=== PATIENT | male | born 1980 | race Caucasian/White ===

== ENCOUNTER 2021-11-15 21:32 | Emergency (ER) | payer MEDICAID ==
[~2021-11-15] VITALS: Ht 177.8 cm; Wt 77.1 kg
[2021-11-15 22:55] LABS: BILIRUBIN,URINE NEGATIVE (NEGATIVE); COLOR,URINE YELLOW (YELLOW); LEUKOCYTE ESTERASE ,URINE NEGATIVE (NEGATIVE); NITRITE, URINE NEGATIVE (NEGATIVE); PROTEIN,URINE NEGATIVE (NEGATIVE); UGLUCOSE NEGATIVE (NEGATIVE)
--- NOTE | 2021-11-15 23:15 | NUR ---
PATIENT BIBSELF C/O +SI WITH PLAN TO DRINK FORMALDEHYDE, VOL PSYCH ADMIT. PATIENT IS A/O X 4 RR EVEN AND UNLABORED, NO SOB NOTED, VSS. NO ACUTE DISTRESS NOTED. PATIENT TAKEN TO ER BED 18, SECURITY WANDED PT, BELONGINGS TAKEN TO PT LOCKER, PT PLACED IN GOWN. WILL CONTINUE TO MONITOR.
[2021-11-15 23:20] LABS: BACTERIA,URINE Rare /HPF (None Seen); RBC,URINE 21-50 /HPF (0-2); SQUAMOUS EPITHELIAL CELL,UR Rare /HPF (None Seen)
[2021-11-15 23:44] LABS: BASOPHILS % (AUTO) 0.5 % (0.0-2.0); EOSINOPHILS % (AUTO) 3.2 % (0.0-6.0); HEMATOCRIT 40 % (39-51); HEMOGLOBIN 13.2 g/dL (13.5-17.5); LYMPHOCYTES # (AUTO) 2.1 K/uL (0.8-4.8); MEAN CORPUSCULAR HGB CONC 33 g/dl (31.0-36.0); MEAN CORPUSCULAR VOLUME 87 fL (80-96); MONOCYTES # (AUTO) 0.5 K/uL (0.1-1.30); MONOCYTES % (AUTO) 9.8 % (2.0-12.0); NEUTROPHILS # (AUTO) 2.4 K/uL (1.8-8.9); NEUTROPHILS % (AUTO) 46.5 % (43.0-81.0); PLATELET COUNT (AUTO) 192 K/uL (150-450); RED BLOOD CELL COUNT(AUTO) 4.58 MIL/uL (4.5-6.0); WHITE BLOOD COUNT (AUTO) 5.2 K/uL (4.3-11.0)
--- NOTE | 2021-11-16 | NUR ---
URINE COLLECTED SENT TO LAB
--- NOTE | 2021-11-16 00:01 | NUR ---
ANIAID COLLECTED SENT TO LAB
[2021-11-16 00:20] LABS: ACETAMINOPHEN 0 ug/ml (10-30); ALANINE AMINOTRANSFERASE 121 U/L (12-78); ALBUMIN 3.1 g/dL (3.4-5.0); ALCOHOL, BLOOD < 3 mg/dL (0-0); ALKALINE PHOSPHATASE 91 U/L (46-116); ASPARTATE AMINOTRANSFERASE 77 U/L (15-37); BILIRUBIN,DIRECT 0.1 mg/dL (0.0-0.2); BILIRUBIN,TOTAL 0.2 mg/dL (0.2-1.0); CALCIUM, SERUM 8.5 mg/dL (8.5-10.1); CARBON DIOXIDE 34 mmol/L (21-32); CHLORIDE 102 mmol/L (98-107); CREATININE 1.2 mg/dL (0.6-1.3); GLUCOSE 133 mg/dL (74-106); POTASSIUM 4.2 mmol/L (3.5-5.1); SODIUM SERUM 137 mmol/L (136-145); TOTAL PROTEIN, SERUM 7.9 g/dL (6.4-8.2); UREA NITROGEN, BLOOD 15 mg/dL (7-18)
[2021-11-16 05:00] VITALS: BP 135/70
--- NOTE | 2021-11-16 05:00 | NUR ---
PATIENT RESTING IN BED, VSS, NO ACUTE DISTRESS NOTED.
--- NOTE | 2021-11-16 06:00 | NUR ---
FACESHEET AND CLINICALS FAXED TO [facility].
--- NOTE | 2021-11-16 06:57 | NUR ---
Dai han in [facility] - 11/16/21 at 0716 by MARISELA [phone]
--- NOTE | 2021-11-16 08:58 | NUR ---
Followed-up with [facility], still awaiting for feedback.
--- NOTE | 2021-11-16 10:15 | NUR ---
ACCEPTED UNDER DOMINICK RAMAN 11AM FOR ENVIRONMENTAL PROTECTION OFFICER, NUMBER FOR REPORT [phone]
--- NOTE | 2021-11-16 10:24 | NUR ---
REPORT GIVEN TO JAME FOR DELVIN
--- NOTE | 2021-11-16 11:26 | NUR ---
[facility] CAME IN AND PICKED HIM UP,2 BABELONGINGS BAG WITH ALL HIS BELONGINGS AND A CHOULDER BAG GIVEN
== END 2021-11-16 11:28 ==
LOC: ER 21:38
DX: R45.851 Suicidal ideations (principal); R74.01 Elevation of levels of liver transaminase levels; Z20.822 Contact with and (suspected) exposure to COVID-19
CPT/HCPCS: 36415; 80048; 80076; 80143; 80307; 80320; 81001; 85025; 87426; 99285; C9803; G0480

== ENCOUNTER 2021-12-01 04:47 | Emergency (ER) | payer MEDICAID ==
[~2021-12-01] VITALS: Ht 177.8 cm; Wt 77.1 kg
--- NOTE | 2021-12-01 05:52 | NUR ---
BIBS FOR S/I WITH AUDITORY HALLUCINATIONS TELLING HIM TO KILL HIMSELF SEEKING VOLUNTARY ADMISSION TO PSYCH. PATIENT ALERT AND ORIENTED X3. AMBULATORY WITH NON LABORED BREATHING IN BED 18 ALL BELONGINGS TAKEN AND SENT TO LOCKER. WANDED BY SECURITY AWAITING MD THOMSON.
--- NOTE | 2021-12-01 05:53 | NUR ---
URINE COLLECTED AND SENT TO LAB
--- NOTE | 2021-12-01 05:53 | NUR ---
COVID SWAB DONE AND SENT TO LAB
[2021-12-01 06:31] LABS: BASOPHILS % (AUTO) 0.8 % (0.0-2.0); EOSINOPHILS % (AUTO) 5.5 % (0.0-6.0); HEMATOCRIT 39 % (39-51); HEMOGLOBIN 12.9 g/dL (13.5-17.5); LYMPHOCYTES # (AUTO) 1.7 K/uL (0.8-4.8); LYMPHOCYTES % (AUTO) 39.1 % (20.0-44.0); MEAN CORPUSCULAR HGB CONC 33 g/dl (31.0-36.0); MEAN CORPUSCULAR VOLUME 87 fL (80-96); MONOCYTES # (AUTO) 0.5 K/uL (0.1-1.30); MONOCYTES % (AUTO) 10.7 % (2.0-12.0); NEUTROPHILS # (AUTO) 1.9 K/uL (1.8-8.9); NEUTROPHILS % (AUTO) 43.9 % (43.0-81.0); PLATELET COUNT (AUTO) 185 K/uL (150-450); RED BLOOD CELL COUNT(AUTO) 4.41 MIL/uL (4.5-6.0); WHITE BLOOD COUNT (AUTO) 4.4 K/uL (4.3-11.0)
[2021-12-01 06:44] LABS: BILIRUBIN,URINE NEGATIVE (NEGATIVE); COLOR,URINE YELLOW (YELLOW); LEUKOCYTE ESTERASE ,URINE NEGATIVE (NEGATIVE); NITRITE, URINE NEGATIVE (NEGATIVE); PH,URINE 5.5 (5.0-8.0); PROTEIN,URINE NEGATIVE (NEGATIVE); UGLUCOSE NEGATIVE (NEGATIVE); UROBILINOGEN,URINE 0.2 EU/dL (0.2)
[2021-12-01 06:58] LABS: BACTERIA,URINE None seen /HPF (None Seen); RBC,URINE 51-80 /HPF (0-2)
[2021-12-01 07:00] LABS: CALCIUM, SERUM 8.2 mg/dL (8.5-10.1); CARBON DIOXIDE 32 mmol/L (21-32); CHLORIDE 103 mmol/L (98-107); CREATININE 1.2 mg/dL (0.6-1.3); GLUCOSE 101 mg/dL (74-106); POTASSIUM 3.8 mmol/L (3.5-5.1); SODIUM SERUM 138 mmol/L (136-145); UREA NITROGEN, BLOOD 15 mg/dL (7-18)
[2021-12-01 07:06] LABS: ALANINE AMINOTRANSFERASE 130 U/L (12-78); ALBUMIN 2.9 g/dL (3.4-5.0); ALKALINE PHOSPHATASE 89 U/L (46-116); ASPARTATE AMINOTRANSFERASE 77 U/L (15-37); TOTAL PROTEIN, SERUM 7.7 g/dL (6.4-8.2)
[2021-12-01 07:08] LABS: ACETAMINOPHEN < 10 ug/ml (10-30); ALCOHOL, BLOOD < 3 mg/dL (0-0)
[2021-12-01 07:19] LABS: BILIRUBIN,DIRECT 0.1 mg/dL (0.0-0.2)
[2021-12-01 07:21] LABS: BILIRUBIN,TOTAL 0.2 mg/dL (0.2-1.0)
--- NOTE | 2021-12-01 10:02 | NUR ---
PT ACCEPTED AT [facility] UNDER DR. DIAMOND UNIT [phone] FOR REPORT TRANSPORT WILL BE SET UP BY [facility] ACCORDING TO MERVIN FROM [facility]. PENDING ETA.
--- NOTE | 2021-12-01 11:14 | NUR ---
TRANSPORT ETA 30 MINS
[2021-12-01 12:00] VITALS: BP 134/62
--- NOTE | 2021-12-01 12:47 | NUR ---
PICKED UP BY TRANSPORT IN STABLE CONDITION
== END 2021-12-01 12:50 ==
LOC: ER 04:52
DX: R45.851 Suicidal ideations (principal); F15.10 Other stimulant abuse, uncomplicated; Z59.00 Homelessness unspecified; R44.0 Auditory hallucinations; Z20.822 Contact with and (suspected) exposure to COVID-19
CPT/HCPCS: 99285; 85025; 80048; 80076; 81001; 36415; 87426; 80143; 80320; 80307; C9803; G0480

== ENCOUNTER 2022-04-25 04:39 | Emergency (ER) | payer MEDICAID ==
[~2022-04-25] VITALS: Ht 177.8 cm; Wt 79.4 kg
--- NOTE | 2022-04-25 05:01 | NUR ---
COVID ANTIGEN SWAB COLLECTED AND SENT TO LAB
[2022-04-25 06:07] LABS: BASOPHILS % (AUTO) 0.6 % (0.0-2.0); HEMATOCRIT 39 % (39-51); HEMOGLOBIN 13.2 g/dL (13.5-17.5); LYMPHOCYTES # (AUTO) 2.1 K/uL (0.8-4.8); LYMPHOCYTES % (AUTO) 43.6 % (20.0-44.0); MEAN CORPUSCULAR HGB CONC 34 g/dl (31.0-36.0); MEAN CORPUSCULAR VOLUME 90 fL (80-96); MONOCYTES # (AUTO) 0.7 K/uL (0.1-1.30); MONOCYTES % (AUTO) 14.2 % (2.0-12.0); NEUTROPHILS # (AUTO) 1.7 K/uL (1.8-8.9); NEUTROPHILS % (AUTO) 35.6 % (43.0-81.0); PLATELET COUNT (AUTO) 253 K/uL (150-450); RED BLOOD CELL COUNT(AUTO) 4.38 MIL/uL (4.5-6.0); WHITE BLOOD COUNT (AUTO) 4.8 K/uL (4.3-11.0)
[2022-04-25 06:47] LABS: ALANINE AMINOTRANSFERASE 140 U/L (12-78); ALBUMIN 2.9 g/dL (3.4-5.0); ALCOHOL, BLOOD < 3 mg/dL (0-0); ALKALINE PHOSPHATASE 91 U/L (46-116); ASPARTATE AMINOTRANSFERASE 71 U/L (15-37); BILIRUBIN,DIRECT 0.1 mg/dL (0.0-0.2); BILIRUBIN,TOTAL 0.4 mg/dL (0.2-1.0); CALCIUM, SERUM 8.4 mg/dL (8.5-10.1); CARBON DIOXIDE 27 mmol/L (21-32); CHLORIDE 104 mmol/L (98-107); GLUCOSE 91 mg/dL (74-106); POTASSIUM 3.8 mmol/L (3.5-5.1); SODIUM SERUM 135 mmol/L (136-145); UREA NITROGEN, BLOOD 12 mg/dL (7-18)
[2022-04-25 06:49] LABS: ACETAMINOPHEN < 10 ug/ml (10-30); BILIRUBIN,URINE NEGATIVE (NEGATIVE); COLOR,URINE YELLOW (YELLOW); LEUKOCYTE ESTERASE ,URINE NEGATIVE (NEGATIVE); NITRITE, URINE NEGATIVE (NEGATIVE); PH,URINE 5.5 (5.0-8.0); PROTEIN,URINE NEGATIVE (NEGATIVE); UGLUCOSE NEGATIVE (NEGATIVE); UROBILINOGEN,URINE 0.2 EU/dL (0.2)
[2022-04-25 07:39] LABS: BACTERIA,URINE Rare /HPF (None Seen); SQUAMOUS EPITHELIAL CELL,UR None Seen /HPF (None Seen); WBC,URINE 0-2 /HPF (0-3)
--- NOTE | 2022-04-25 09:49 | NUR ---
CLINICALS FAXED TO [facility]
--- NOTE | 2022-04-25 11:52 | NUR ---
CALLED [facility] FOR UPDATE, WAITING FOR BED PER MERVIN
--- NOTE | 2022-04-25 14:37 | NUR ---
ACCEPTED AT [facility] PER MERVIN. TRANSPO ETA BY 1500. PLS CALL FOR REPORT
--- NOTE | 2022-04-25 14:56 | NUR ---
PT UNDER DR. JADE GIVE REPORT TO [phone]
[2022-04-25 14:57] VITALS: BP 132/79
--- NOTE | 2022-04-25 15:20 | NUR ---
TRY TO GIVE REPORT 3X BUT NO ANSWER
--- NOTE | 2022-04-25 16:12 | NUR ---
[facility].
== END 2022-04-25 16:15 ==
LOC: ER 04:42
DX: R45.851 Suicidal ideations (principal); Z59.00 Homelessness unspecified; Z20.822 Contact with and (suspected) exposure to COVID-19; Z86.19 Personal history of other infectious and parasitic diseases
CPT/HCPCS: 99285; 85025; 80048; 80076; 81001; 36415; 87426; 80143; 80320; 80307; C9803; G0480

== ENCOUNTER 2022-05-09 05:58 | Emergency (ER) | payer MEDICAID ==
[~2022-05-09] VITALS: Ht 177.8 cm; Wt 79.4 kg
--- NOTE | 2022-05-09 06:15 | NUR ---
PATIENT BIBSELF C/O HEARING VOICES AND WANTS A VOL PSYCH ADMIT. -HI. PATIENT IS A/O X 4, RR EVEN AND UNLABORED NO SOB NOTED. PATIENT IS AFEBRILE. VSS. NO ACUTE DISTRESS NOTED. PATIENT PLACED IN HOSPTIAL GOWN AND ALL BELONGINGS TAKEN AND PLACED IN LOCKER. PATIENT WANDED BY SECURITY. PATIENT TAKEN TO ER BED 18. WILL CONTINUE TO MONITOR.
--- NOTE | 2022-05-09 06:17 | NUR ---
COVID SWAB COLLECTED
--- NOTE | 2022-05-09 06:22 | NUR ---
URINE COLLECTED SENT TO LAB
[2022-05-09 06:55] LABS: BILIRUBIN,URINE NEGATIVE (NEGATIVE); COLOR,URINE YELLOW (YELLOW); LEUKOCYTE ESTERASE ,URINE NEGATIVE (NEGATIVE); NITRITE, URINE NEGATIVE (NEGATIVE); PROTEIN,URINE NEGATIVE (NEGATIVE); UGLUCOSE NEGATIVE (NEGATIVE); UROBILINOGEN,URINE 0.2 EU/dL (0.2)
[2022-05-09 07:24] LABS: BASOPHILS % (AUTO) 0.5 % (0.0-2.0); HEMATOCRIT 41 % (39-51); HEMOGLOBIN 13.8 g/dL (13.5-17.5); LYMPHOCYTES # (AUTO) 1.7 K/uL (0.8-4.8); LYMPHOCYTES % (AUTO) 29.6 % (20.0-44.0); MEAN CORPUSCULAR HGB CONC 34 g/dl (31.0-36.0); MEAN CORPUSCULAR VOLUME 89 fL (80-96); MONOCYTES # (AUTO) 0.5 K/uL (0.1-1.30); MONOCYTES % (AUTO) 9.1 % (2.0-12.0); NEUTROPHILS # (AUTO) 3.3 K/uL (1.8-8.9); NEUTROPHILS % (AUTO) 59.8 % (43.0-81.0); PLATELET COUNT (AUTO) 210 K/uL (150-450); WHITE BLOOD COUNT (AUTO) 5.6 K/uL (4.3-11.0)
[2022-05-09 07:35] LABS: CALCIUM, SERUM 8.7 mg/dL (8.5-10.1); CARBON DIOXIDE 28 mmol/L (21-32); CHLORIDE 104 mmol/L (98-107); CREATININE 1.2 mg/dL (0.6-1.3); GLUCOSE 99 mg/dL (74-106); POTASSIUM 3.7 mmol/L (3.5-5.1); SODIUM SERUM 139 mmol/L (136-145); UREA NITROGEN, BLOOD 12 mg/dL (7-18)
[2022-05-09 07:40] LABS: ALANINE AMINOTRANSFERASE 107 U/L (12-78); ALBUMIN 3.4 g/dL (3.4-5.0); ALKALINE PHOSPHATASE 88 U/L (46-116); ASPARTATE AMINOTRANSFERASE 74 U/L (15-37); BILIRUBIN,DIRECT 0.1 mg/dL (0.0-0.2); BILIRUBIN,TOTAL 0.4 mg/dL (0.2-1.0); TOTAL PROTEIN, SERUM 8.3 g/dL (6.4-8.2)
[2022-05-09 09:00] LABS: ALCOHOL, BLOOD < 3 mg/dL (0-0)
[2022-05-09 09:11] LABS: BACTERIA,URINE Few /HPF (None Seen); RBC,URINE 21-50 /HPF (0-2); SQUAMOUS EPITHELIAL CELL,UR Few /HPF (None Seen)
[2022-05-09 09:16] LABS: ACETAMINOPHEN < 10 ug/ml (10-30)
--- NOTE | 2022-05-09 09:48 | NUR ---
FAXED CLINICALS AND FACE SHEET TO [facility]
[2022-05-09 10:49] VITALS: BP 133/84
--- NOTE | 2022-05-09 11:28 | NUR ---
SS Consult: SS Consult requested for homelessness . The pt. is a 41-year-old male pt. who came to the ED for auditory hallucinations. Upon SS consult, the pt. is Alert & Oriented x 4 and makes good eye contact. The pt. appears unkempt with depressed mood & affect. Pt.s speech is clear and thought process is WNL. Pt. remained, calm & cooperative throughout interview. Pt. denies SI/HI and states he has non commanding auditory hallucinations. Pt. denies commanding voices. Per pt. the hallucinations have recently began about 2 days ago. SW provided patient with outpatient referrals for mental health treatment and pt. stated he will follow up. Pt. stated he will use resource to seek outpatient treatment. Pt. has good insight & judgement. SW explored pt.s living situation. Patient states he is experiencing homelessness for the past 10 months and has been staying on the street. SW provided referrals for shelters and tap card and pt. stated he will use resources to find penitentiary. JAZMYN explored pt.s drug & ETOH use. 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 Pt. stated he is independent with his ADLs and ambulating. SW explored pt.s support system. Pt. states his parents [phone] are his support system. Plan: Pt. [facility] as he does not meet criteria for admission. Pt. signed homeless waiver and it was placed in the pt.s chart. JAZMYN provided pt. with clothing, shoes and bus TAP card. JAZMYN discussed DC plan with Crow ANTONIO. JAZMYN provided pt. with the following homeless, outpatient mental health and drug use resources and pt. accepted them. Pt. stated he will use resource to seek outpatient treatment and penitentiary. Year-round shelters: [facility] [address] [place], [place] [phone] ; [facility] [address] [place] [address]; [facility] [address] [facility]. [facility] [phone] Hygiene: [facility]: [address] [place] ; [facility] [address] [facility] ; [facility] [address] . Food Resources: [place] [facility] at [facility]- [address] [place]; Meet Each Need with Dignity ([facility]) [address] [facility]; [facility] [address] [facility]; [facility] [address]. Mental Health resources provided: [facility] [address] [place], [place] [phone] ; [facility] [address] [facility] [address], [place], [place] [phone] ; [facility] [address] [facility] [place], [place] [phone] ; [facility] [place] [address] [place], [place] [phone] Healthcare Clinics: [facility] [address] [facility], [address] [place]. [place] ; [facility] [address] [facility] [address] [address] [place] [address]; [facility] [place] [address] [facility]. [place] [phone] Counseling--Outpatient [facility] [address], [address] [place], [place] [address] (Specializes in in-depth psychotherapy for emotional distress: anxiety, depression, interpersonal conflicts, life transitions, childhood abuse) [facility] [address] [place] [address] (Assist with solving problem marital difficulties, separation & divorce, aging parents, & grief, chronic & terminal illness) [facility] [address] [place] [address] (Deal with loss & grief, anxiety, marital difficulties) Homebound/Mental Health Services [address] [facility], [address] [place], [place] [phone] (Provide in-home mental services to people who are incapable of leaving their homes) [facility] of [facility] Elderly Senior Service/Resource Center [address] [place] [address] [facility] [address] [place] [address] PSYCHIATRIC OUTPATIENT SERVICES [facility] Partial Hospitalization and Intensive Outpatient Program (Managed Care and [place] Only)[address] [facility] [phone] [facility] Partial Hospitalization and Outpatient [address] [place], [place] [phone] [facility] [place] [id number] [place], [place] [phone] [facility] Partial Hospitalization and Outpatient Edicugf[address] [place], [phone] Substance Abuse resources provided included: [facility] Substance Abuse Self-Helpline ([facility]) ; [facility] [address] [facility]. [place] [address] ; [facility] [address] [facility] [address] ; [facility] [address] [address] ; [facility] [address] [facility] [address] ; [facility] Treatment [facility] [address] [facility] [address] ; [facility] [address] [facility] [address] ; [facility] Substance Abuse Helpline([facility])-[facility] ; [facility] ; [facility] [place]; [facility]; [facility] [place]; [facility] [address] [place]; [facility] [place]; [facility] [place]; [facility]; [facility], [facility]. Quique Atkinson; Alcoholics Anonymous -[facility]; Lydia ; Marijuana Anonymous -[facility]V; Narcotics Anonymous www.na.org;
== END 2022-05-09 10:50 | disposition home or self-care (01) ==
LOC: ER 06:00
DX: R44.0 Auditory hallucinations (principal); F15.10 Other stimulant abuse, uncomplicated; Z59.00 Homelessness unspecified; Z20.822 Contact with and (suspected) exposure to COVID-19; Z86.19 Personal history of other infectious and parasitic diseases; Z87.19 Personal history of other diseases of the digestive system
CPT/HCPCS: 99284; 85025; 80048; 80076; 81001; 36415; 87426; 80143; 80320; 80307; C9803; G0480

== ENCOUNTER 2022-05-15 17:06 | Emergency (ER) | payer MEDICAID ==
[~2022-05-15] VITALS: Ht 177.8 cm; Wt 77.1 kg
[2022-05-15 18:33] LABS: BASOPHILS % (AUTO) 0.5 % (0.0-2.0); EOSINOPHILS % (AUTO) 7.4 % (0.0-6.0); HEMATOCRIT 39 % (39-51); HEMOGLOBIN 12.8 g/dL (13.5-17.5); LYMPHOCYTES % (AUTO) 37.7 % (20.0-44.0); MEAN CORPUSCULAR HGB CONC 33 g/dl (31.0-36.0); MEAN CORPUSCULAR VOLUME 90 fL (80-96); MONOCYTES # (AUTO) 0.5 K/uL (0.1-1.30); MONOCYTES % (AUTO) 10.3 % (2.0-12.0); NEUTROPHILS # (AUTO) 2.3 K/uL (1.8-8.9); NEUTROPHILS % (AUTO) 44.1 % (43.0-81.0); PLATELET COUNT (AUTO) 170 K/uL (150-450); RED BLOOD CELL COUNT(AUTO) 4.29 MIL/uL (4.5-6.0); WHITE BLOOD COUNT (AUTO) 5.2 K/uL (4.3-11.0)
[2022-05-15 18:40] LABS: CALCIUM, SERUM 7.8 mg/dL (8.5-10.1); CARBON DIOXIDE 28 mmol/L (21-32); CHLORIDE 104 mmol/L (98-107); CREATININE 1.1 mg/dL (0.6-1.3); GLUCOSE 105 mg/dL (74-106); POTASSIUM 3.6 mmol/L (3.5-5.1); SODIUM SERUM 138 mmol/L (136-145); UREA NITROGEN, BLOOD 11 mg/dL (7-18)
[2022-05-15 18:45] LABS: ALANINE AMINOTRANSFERASE 88 U/L (12-78); ALBUMIN 2.7 g/dL (3.4-5.0); ALCOHOL, BLOOD < 3 mg/dL (0-0); ALKALINE PHOSPHATASE 73 U/L (46-116); ASPARTATE AMINOTRANSFERASE 52 U/L (15-37); BILIRUBIN,DIRECT 0.1 mg/dL (0.0-0.2); BILIRUBIN,TOTAL 0.2 mg/dL (0.2-1.0); TOTAL PROTEIN, SERUM 7.1 g/dL (6.4-8.2)
[2022-05-15 19:06] LABS: BILIRUBIN,URINE NEGATIVE (NEGATIVE); COLOR,URINE YELLOW (YELLOW); LEUKOCYTE ESTERASE ,URINE NEGATIVE (NEGATIVE); NITRITE, URINE NEGATIVE (NEGATIVE); PROTEIN,URINE NEGATIVE (NEGATIVE); UGLUCOSE NEGATIVE (NEGATIVE); UROBILINOGEN,URINE 0.2 EU/dL (0.2)
--- NOTE | 2022-05-15 19:10 | NUR ---
HEARING VOICES TELLING HIM TO HURT HIMSELF SINCE SU PT A/OX3. TOLERATING R/A WELL WITH NO RESP DISTRESS. AMBULATORY WITH STEADY GAIT. PT CHANGED IN GOWN, BELONGINGS COLLECTED AND PLACED IN LOCKER, WANDED BY SECURITY. SAFETY MEASURES IN PLACE.
[2022-05-15 19:58] LABS: BACTERIA,URINE None seen /HPF (None Seen); RBC,URINE 51-80 /HPF (0-2); SQUAMOUS EPITHELIAL CELL,UR 0-2 /HPF (None Seen); WBC,URINE 0-2 /HPF (0-3)
[2022-05-15 22:01] VITALS: BP 143/75
--- NOTE | 2022-05-15 22:01 | NUR ---
COVID SWAB COLLECTED
--- NOTE | 2022-05-16 01:42 | NUR ---
PT GOT ACCEPTED AT [facility] BY DR THOMAS. REPORT GIVEN TO SONG
--- NOTE | 2022-05-16 02:12 | NUR ---
[facility] ETA:75-90 MIN
--- NOTE | 2022-05-16 03:55 | NUR ---
[facility] AT BED SIDE TO ORACLE SOFTWARE ENGINEER THE PT
== END 2022-05-16 04:10 ==
LOC: ER 17:08
DX: R45.851 Suicidal ideations (principal); R44.0 Auditory hallucinations; Z86.19 Personal history of other infectious and parasitic diseases; Z20.822 Contact with and (suspected) exposure to COVID-19
CPT/HCPCS: 99285; 85025; 80048; 80076; 81001; 36415; 87426; 80143; 80320; 80307; C9803; G0480

== ENCOUNTER 2022-10-22 06:32 | Emergency (ER) | payer MEDICAID ==
[~2022-10-22] VITALS: Ht 177.8 cm; Wt 79.4 kg
--- NOTE | 2022-10-22 06:48 | NUR ---
BIBS FOR HEARING VOICES, SI, PLANNING TO JUMP IN TO TRAFFIC REQUESTING VOLUNTARY PSYCH ADMISSION. PT IS A, OX4. AMBULATORY W STEADY GAITS TO THE BATHROOM. URINE SAMPLE OBTAINED AND PT WAS PLACED ON SI PRECAUTION. GOWNED UP AND BELONGING S TAKEN AWAY. WILL CONT TO MONITOR
[2022-10-22 07:58] LABS: CALCIUM, SERUM 8.9 mg/dL (8.5-10.1); CARBON DIOXIDE 29 mmol/L (21-32); CHLORIDE 103 mmol/L (98-107); CREATININE 1.2 mg/dL (0.6-1.3); GLUCOSE 165 mg/dL (74-106); POTASSIUM 4.4 mmol/L (3.5-5.1); SODIUM SERUM 137 mmol/L (136-145); UREA NITROGEN, BLOOD 17 mg/dL (7-18)
[2022-10-22 08:03] LABS: ALANINE AMINOTRANSFERASE 138 U/L (12-78); ALBUMIN 3.2 g/dL (3.4-5.0); ALKALINE PHOSPHATASE 91 U/L (46-116); ASPARTATE AMINOTRANSFERASE 79 U/L (15-37); BILIRUBIN,DIRECT 0.1 mg/dL (0.0-0.2); BILIRUBIN,TOTAL 0.4 mg/dL (0.2-1.0); TOTAL PROTEIN, SERUM 8.2 g/dL (6.4-8.2)
[2022-10-22 08:04] LABS: ALCOHOL, BLOOD < 3 mg/dL (0-10); BASOPHILS % (AUTO) 0.8 % (0.0-2.0); EOSINOPHILS % (AUTO) 6.1 % (0.0-6.0); HEMATOCRIT 45 % (39-51); HEMOGLOBIN 14.7 g/dL (13.5-17.5); LYMPHOCYTES # (AUTO) 1.5 K/uL (0.8-4.8); LYMPHOCYTES % (AUTO) 37.6 % (20.0-44.0); MEAN CORPUSCULAR HGB CONC 33 g/dl (31.0-36.0); MEAN CORPUSCULAR VOLUME 92 fL (80-96); MONOCYTES # (AUTO) 0.4 K/uL (0.1-1.30); NEUTROPHILS # (AUTO) 1.9 K/uL (1.8-8.9); NEUTROPHILS % (AUTO) 45.5 % (43.0-81.0); PLATELET COUNT (AUTO) 175 K/uL (150-450); RED BLOOD CELL COUNT(AUTO) 4.87 MIL/uL (4.5-6.0); WHITE BLOOD COUNT (AUTO) 4.1 K/uL (4.3-11.0)
--- NOTE | 2022-10-22 08:57 | NUR ---
faxed pt clinicals to susanne collins and sent pt face sheet to [facility]
[2022-10-22 09:03] LABS: BILIRUBIN,URINE NEGATIVE (NEGATIVE); COLOR,URINE DARK YELLOW (YELLOW); LEUKOCYTE ESTERASE ,URINE NEGATIVE (NEGATIVE); NITRITE, URINE NEGATIVE (NEGATIVE); PROTEIN,URINE NEGATIVE (NEGATIVE); UGLUCOSE NEGATIVE (NEGATIVE); UROBILINOGEN,URINE 0.2 EU/dL (0.2)
--- NOTE | 2022-10-22 09:44 | NUR ---
BRITT CALLED AND WAS NOTIFIED OF ACCEPTANCE INFO UNDER THE CARE OF DR. Drew NUMBER FOR REPORT [phone] KENNEL ATTENDANT AT 1200
--- NOTE | 2022-10-22 11:35 | NUR ---
CALLED SO CHIARA LEON FOR REPORT [phone]. NO ANSWER
--- NOTE | 2022-10-22 11:37 | NUR ---
patient picked up by transport
[2022-10-22 11:38] VITALS: BP 122/84
== END 2022-10-22 11:38 | disposition short-term general hospital (02) ==
LOC: ER 06:32
DX: R45.851 Suicidal ideations (principal); R44.0 Auditory hallucinations; F15.10 Other stimulant abuse, uncomplicated; F17.200 Nicotine dependence, unspecified, uncomplicated; Z59.00 Homelessness unspecified; Z20.822 Contact with and (suspected) exposure to COVID-19
CPT/HCPCS: 99285; 85025; 80048; 80076; 81003; 36415; 87426; 80143; 80320; 80307; C9803; G0480